=== PATIENT | male | born 1985 | race Two or more races ===

== ENCOUNTER 2023-01-27 23:04 | Emergency (ER) | payer SELFPAY ==
[~2023-01-27] VITALS: Ht 167.6 cm; Wt 72.5 kg
[2023-01-27] MEDS ORDERED: LIDOCAINE VISCOUS 2% 15ML UD MT ONE (23:30)
[2023-01-28] MEDS ORDERED: AMOX875T4 PO (04:18)
[2023-01-28] MEDS ORDERED: IBUP-1456 PO (04:18)
[2023-01-28 04:30] VITALS: BP 109/84; PULSE 74; RESP 20; TEMP 97.9; O2SAT 97
== END 2023-01-28 04:45 | disposition home or self-care (01) ==
LOC: ER 23:10
DX: T16.2XXA Foreign body in left ear, initial encounter (principal); X58.XXXA Exposure to other specified factors, initial encounter; Y93.89 Activity, other specified; Y92.89 Other specified places as the place of occurrence of the external cause; Y99.8 Other external cause status